=== PATIENT | male | born 1965 | race African-American/Black ===

== ENCOUNTER 2017-10-13 16:47 | Emergency (ER) | payer BC, SELFPAY ==
[~2017-10-13 16:47] MED LIST: ISOVUE-370 76%-LOCM 1 ML ONE
[2017-10-13] MEDS ORDERED: Cyclobenzaprine 10 MG TAB ONE (20:27)
[2017-10-13] MEDS ORDERED: Ketorolac Tromethamine 30 MG/ML VIAL ONE (20:27)
--- NOTE | 2017-10-13 20:30 | RAD ---
THREE VIEWS RIGHT SHOULDER 10/13/17 HISTORY: Right shoulder pain. AP internally, externally and scapular Y-views right shoulder is obtained. There appears to be old traumatic injury in the distal right clavicle. This may have been from old tr auma which secondarily there has been surgical resection and incomplete healing. There is an area of lucency in the right scapular spine. I am concerned that this may be a more acute fracture. Simply reaching up or something at work would not lead to such a fracture. Usually scapula r injury is result of high velocity or high forced trauma. No other significant abnormality is seen. IMPRESSION: 1. Old chronic changes seen in the distal right clavicle. 2. Possible acute scapular spine fracture. Correlate with clinical exam and history. POS: RASHAWN
--- NOTE | 2017-10-13 22:11 | CT ---
CONTRAST ENHANCED CT CHEST 10/13/17 HISTORY: Fall with right shoulder pain. Contrast enhanced CT of the chest is performed. There is chronic changes in the distal right clavicle. There is an acute right scapular fracture whic h was seen on the patient's recent radiographs of the right shoulder. No evidence of other bony lesio ns seen. The lungs are well aerated. No evidence of hemo or pneumothorax seen. No evidence of mediast inal, axillary, or hilar lymphadenopathy seen. IMPRESSION: Acute right scapular fracture. POS: H
== END 2017-10-13 22:27 | disposition home or self-care (01) ==
LOC: ERS 16:47
DX: S42.101A Fracture of unspecified part of scapula, right shoulder, initial encounter for closed fracture (principal); W11.XXXA Fall on and from ladder, initial encounter
CPT/HCPCS: 71260; 96374; J1885

== ENCOUNTER 2020-05-30 10:03 | Emergency (ER) | payer SELFPAY ==
[2020-05-30 10:44] LABS: #Eosinphils 0.1 thou/uL (0.0-0.7); #Lymphocytes 1.8 thou/uL (1.20-3.40); #Monocytes 0.4 thou/uL (0.11-0.59); #Neutrophils 3.6 thou/uL (1.40-6.50); %Basophils 0.6 % (0.0-1.0); %Eosinophils 1.6 % (0.0-10.0); %Lymphocytes 30.8 % (21.0-51.0); %Monocytes 6.4 % (0.0-10.0); %Neutrophils 60.6 % (42.0-75.0); Hemoglobin 14.3 g/dL (14.0-18.0); Mean Corpuscular HGB CONC 32.2 g/dL (32.0-36.0); Mean Corpuscular Hemoglobin 31.4 pg (27.0-31.0); Mean Corpuscular Volume 97.4 fL (78.0-98.0); Mean Platelet Volume 7.4 fL (7.4-10.4); Platelet Count 231 thou/uL (130-400); RBC Distribution Width 12.6 % (11.5-14.5); Red Blood Cell (RBC) Count 4.55 mill/uL (4.70-6.10)
[2020-05-30 10:48] LABS: PTT 28.2 sec (22.9-36.1); Prothrombin Time 12.8 sec (12.0-14.7)
[2020-05-30 11:57] LABS: ALT (SGPT) 20 U/L (8-55); AST (SGOT) 25 U/L (5-34); Albumin 4.4 g/dL (3.5-5.0); Alkaline Phosphatase 92 U/L (40-110); Anion Gap 8 mmol/L (10-20); BUN (Urea Nitrogen) 18 mg/dL (8.4-25.7); Bilirubin, Total 0.4 mg/dL (0.2-1.2); Calc. Creatinine Clearance 0 mL/min (70-130); Calcium 9.6 mg/dL (7.8-10.44); Carbon Dioxide 32 mmol/L (22-29); Chloride 103 mmol/L (98-107); Estimated GFR-MDRD 67; Globulin 3.7 g/dL (2.4-3.5); Glucose 63 mg/dL (70-105); Potassium 4.3 mmol/L (3.5-5.1); Protein, Total 8.1 g/dL (6.0-8.3); Sodium 139 mmol/L (136-145)
== END 2020-05-30 12:02 | disposition home or self-care (01) ==
LOC: ERS 10:03
DX: K64.4 Residual hemorrhoidal skin tags (principal); K64.8 Other hemorrhoids
CPT/HCPCS: 80053; 82274; 85025; 85610; 85730; 86850; 86870; 86900; 86901; 99283